=== PATIENT | male | born 1955 ===

== ENCOUNTER 2017-10-15 19:00 | Emergency (ER) | payer SELFPAY ==
[2017-10-15 19:07] VITALS: TEMP 96.5; O2SAT 97
[2017-10-15 19:56] VITALS: PULSE 67; RESP 18
[2017-10-15] MEDS ORDERED: Tetracaine 0.5% Ophth 2 ML BOTTLE ONE (20:24)
[2017-10-15] MEDS ORDERED: Tetracaine 0.5% Ophth 2 ML BOTTLE OD ONE (20:48)
--- NOTE | 2017-10-15 20:56 | ED PDOC ---
HPI: Eye Injury/Pain Time Seen by Provider: 10/15/17 19:24 Chief Complaint (Nursing): Eye Problem Chief Complaint (Provider): right eye pain History Per: Patient History/Exam Limitations: no limitations Onset/Duration Of Symptoms: Hrs (5pm), Days (10/15/17) Current Symptoms Are (Timing): Still Present Quality: "Pain" Wears Contact Lens?: No Associated Symptoms: Decreased Vision, Discharge From Eye Additional Complaint(s): 62 year old male presents to the ED complaining of sudden right eye pain onset at 5pm today. Patient states dust went into his eyes while cleaning the room he is planning to paint. Reports eye pain is severe. Eye is burning, swollen, and there is excessive tearing. He has difficulty seeing and has blurry vision. Patient had his last tetanus vaccine shot 3 years ago after he had a hand laceration. Denies wearing eye glasses or contacts. PMD: No Family Provider Past Medical History Reviewed: Historical Data, Nursing Documentation, Vital Signs Vital Signs: Last Vital Signs Temp 96.5 F L 10/15/17 19:03 Pulse 67 10/15/17 19:54 Resp 18 10/15/17 19:54 BP 167/99 H 10/15/17 20:26 Pulse Ox 97 10/15/17 19:54 - Medical History PMH: No Chronic Diseases - Surgical History Surgical History: Appendectomy - Family History Family History: States: Unknown Family Hx - Social History Current smoker - smoking cessation education provided: No - Immunization History Hx Tetanus Toxoid Vaccination: No - Home Medications Home Medications: Ambulatory Orders Medication Instructions Recorded Ibuprofen [Motrin Tab] 600 mg PO Q8 PRN #60 tab 10/15/17 Tobramycin/Dexamethasone [Tobradex 0.5 in OD QID #3.5 g 10/15/17 Eye Ointment] - Allergies Allergies/Adverse Reactions: Allergies Allergy/AdvReac Type Severity Reaction Status Date / Time No Known Allergies Allergy Verified 04/09/15 14:26 Review of Systems ROS Statement: Except As Marked, All Systems Reviewed And Found Negative (As per HPI, otherwise negative) Eyes: Positive for: Pain (right eye), Vision Change (blurry vision), Eyelid Inflammation, Redness Physical Exam - Reviewed Nursing Documentation Reviewed: Yes Vital Signs Reviewed: Yes - Physical Exam Appears: Positive for: In Acute Distress Head Exam: Positive for: ATRAUMATIC, NORMAL INSPECTION, NORMOCEPHALIC Skin: Positive for: Normal Color, Warm, Dry Eye Exam: Positive for: EOMI, PERRL, Periorbital swelling, Periorbital tenderness, Conjunctival injection (mild bilateral subconjunctival; excessive tearing ), Other (bilateral pterygium;excessive tearing;pupil are equal ) Neurologic/Psych: Positive for: Alert, Oriented (x3) - ECG O2 Sat by Pulse Oximetry: 97 (RA) Pulse Ox Interpretation: Normal Medical Decision Making Medical Decision Making: Time: 2036 Initial Plan: --Ibuprofen 600mg --Ice [apply ice to affected area] --Reevaluation Floor scene was performed on right eye. Results confirm positive for large area uptake at 6 o' clock right area and positive for less than 50 percent of the cornea. Time: [address] Bruno who recommends Tobradex ointment and and will see patient at office at 8am. Scribe Attestation: Documented by Lynette Gilman, acting as a scribe for Gisela Mares MD Provider Scribe Attestation: All medical record entries made by the Scribe were at my direction and personally dictated by me. I have reviewed the chart and agree that the record accurately reflects my personal performance of the history, physical exam, medical decision making, and the department course for this patient. I have also personally directed, reviewed, and agree with the discharge instructions and disposition. Disposition - Clinical Impression Clinical Impression: Corneal abrasion, Pterygium of both eyes Counseled Patient/Family Regarding: Studies Performed, Diagnosis, Need For Followup, Rx Given - Disposition Referrals: [facility] [Outside] (ESTA [facility]Y IMPORTANTE A [facility] EN 1-2 SEMANAS A CHEQAR DONALDSON PRESION. [facility] POR LA MANANA A HACER FARHAD MANN.) Parminder Bruno MD [Staff Provider] - 10/16/17 8:00 am Disposition Time: 21:00 Condition: STABLE Additional Instructions: VISITA DR BRUNO [facility] [place] 8:00 Prescriptions: Ibuprofen [Motrin Tab] 600 mg PO Q8 PRN #60 tab PRN Reason: Pain, Moderate (4-7) Tobramycin/Dexamethasone [Tobradex Eye Ointment] 0.5 in OD QID #3.5 g Instructions: High Blood Pressure in Adults, Corneal Abrasion (DC), Pterygium ( DC) Forms: [employer] (Persian) Print Language: SINHALA
[2017-10-15 22:50] VITALS: BP 165/96
== END 2017-10-15 22:59 | disposition home or self-care (01) ==
LOC: H.ER 19:00
DX: H11.003 Unspecified pterygium of eye, bilateral (principal)